=== PATIENT | male | born 1965 | race Caucasian/White ===

== ENCOUNTER → 2021-08-31 | Outpatient (CLI) | payer OTHER | LOC: RAD 09:28 | PROVIDERS: ATTEND Family Medicine | DX: M79.605 Pain in left leg (principal); R60.9 Edema, unspecified | CPT/HCPCS: 93970 ==

== ENCOUNTER → 2022-06-23 | Outpatient (CLI) | payer OTHER | LOC: MAMMO 08:15 | PROVIDERS: ATTEND Family Medicine | DX: N62 Hypertrophy of breast (principal) | CPT/HCPCS: 77066 ==